=== PATIENT | female | born 2000 | race Hispanic/Latino ===

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

== ENCOUNTER 2018-04-26 23:55 | Emergency (ER) | payer SELFPAY ==
--- NOTE | 2018-04-27 01:08 | ER ---
Nurse's Notes [facility] Name: Damien Erwin Age: 17 yrs Sex: Female : 2000 Arrival Date: 04/26/2018 Time: 23:56 Bed 24 Private MD: Diagnosis: Acute pharyngitis Presentation: 04/27 00:30 Presenting complaint: Patient states: sore throat for 2 days. mg2 00:46 Transition of care: patient was not received from another setting of care. Onset of mg2 symptoms was April 26, 2018. Risk Assessment: Do you want to hurt yourself or someone else? Patient reports no desire to harm self or others. Initial Sepsis Screen: Does the patient meet any 2 criteria? No. Patient's initial sepsis screen is negative. Does the patient have a suspected source of infection? No. Patient's initial sepsis screen is negative. Care prior to arrival: None. 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 - Social history:: Smoking status: Patient/guardian denies using tobacco, never smoked. - Ebola Screening: : No symptoms or risks identified at this time. Screenin:23 Abuse screen: Denies threats or abuse. Nutritional screening: No deficits noted. tl3 Tuberculosis screening: No symptoms or risk factors identified. Fall Risk None identified. Assessment: 00:22 General: Appears in no apparent distress. comfortable, slender, well groomed, well tl3 developed, well nourished, Behavior is calm, cooperative, appropriate for age. Pain: Complains of pain in sore throat. Neuro: Level of Consciousness is awake, alert, obeys commands, Oriented to person, place, time, situation, Appropriate for age. Cardiovascular: Patient's skin is warm and dry. Respiratory: Airway is patent Respiratory effort is even, unlabored, Respiratory pattern is regular, symmetrical. GI: No signs and/or symptoms were reported involving the gastrointestinal system. : No signs and/or symptoms were reported regarding the genitourinary system. EENT: Reports pain in throat. Derm: No signs and/or symptoms reported regarding the dermatologic system. Musculoskeletal: No signs and/or symptoms reported regarding the musculoskeletal system. Vital Signs: 00:23 BP 120 / 69; Pulse 72; Resp 18; Temp 98.5; Pulse Ox 98% on R/A; tl3 01:10 BP 115 / 70; Pulse 78; Resp 18; Pulse Ox 100% on R/A; mg2 ED Course: 04/26 23:56 Patient arrived in ED. ds1 04/27 00:07 Chinedu Frazier PA is PHCP. cp 00:07 Chinedu Oliveros MD is Attending Physician. cp 00:21 Joana Coronel, RN is Primary Nurse. tl3 00:23 Patient has correct armband on for positive identification. Bed in low position. Call tl3 light in reach. Side rails up X 1. Adult w/ patient. 00:23 No provider procedures requiring assistance completed. Patient did not have IV access tl3 during this emergency room visit. 00:46 Triage completed. mg2 01:19 Arm band placed on. mg2 Administered Medications: No medications were administered Outcome: 01:07 Discharge ordered by . cp 01:18 Discharged to home ambulatory, with family. mg2 01:18 Condition: stable 01:18 Discharge instructions given to patient, family, Instructed on discharge instructions, follow up and referral plans. Demonstrated understanding of instructions, follow-up care. 01:20 Patient left the ED. mg2 Signatures: [place] ds1 Chinedu Frazier PA PA Joana Santillan, RN RN tl3 Jeffrey Pradhan RN RN mg2
--- NOTE | 2018-04-27 01:08 | EDPHYS ---
Physician Documentation [facility] Name: Damien Erwin Age: 17 yrs Sex: Female : 2000 Arrival Date: 04/26/2018 Time: 23:56 Bed 24 Private MD: ED Physician Chinedu Oliveros HPI: 04/27 00:13 This 17 yrs old Female presents to ER via Unassigned with complaints of sore cp throat. 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 - Social history:: Smoking status: Patient/guardian denies using tobacco, never smoked. - Ebola Screening: : No symptoms or risks identified at this time. ROS: 00:15 Constitutional: Negative for body aches, chills, fever, poor PO intake. cp 00:15 Eyes: Negative for injury, pain, redness, and discharge. cp 00:15 ENT: Positive for sore throat, Negative for drainage from ear(s), ear pain, difficulty swallowing, difficulty handling secretions. 00:15 Cardiovascular: Negative for chest pain. 00:15 Respiratory: Negative for cough, shortness of breath, wheezing. 00:15 Abdomen/GI: Negative for abdominal pain, nausea, vomiting, and diarrhea. 00:15 Skin: Negative for cellulitis, rash. 00:15 All other systems are negative. Exam: 00:22 Constitutional: The patient appears in no acute distress, alert, awake, non-toxic, well cp developed, well nourished. 00:22 Head/Face: Normocephalic, atraumatic. cp 00:22 Eyes: Periorbital structures: appear normal, Conjunctiva: normal, no exudate, no injection, Sclera: no appreciated abnormality, Lids and lashes: appear normal, bilaterally. 00:22 ENT: External ear(s): are unremarkable, Ear canal(s): are normal, clear, TM's: bulging, is not appreciated, bilaterally, dullness, bilaterally, erythema, is not appreciated, bilaterally, Nose: is normal, Mouth: Lips: moist, Oral mucosa: moist, Gums: normal with healthy appearance, Tongue: is normal, Posterior pharynx: Airway: no evidence of obstruction, patent, Tonsils: are normal in appearance, Uvula: midline, non-edematous, no erythema, swelling, is not appreciated, erythema, that is mild, upper posterior palate, exudate, is not appreciated, Voice: is normal. 00:22 Neck: ROM/movement: is normal, is supple, without pain, no range of motions limitations, no nuchal rigidity, Lymph nodes: no appreciated lymphadenopathy. 00:22 Chest/axilla: Inspection: normal. 00:22 Cardiovascular: Rate: normal, Rhythm: regular. 00:22 Respiratory: the patient does not display signs of respiratory distress, Respirations: normal, no use of accessory muscles, no retractions, no splinting, no tachypnea. 00:22 Skin: cellulitis, is not appreciated, no rash present. Vital Signs: 00:23 BP 120 / 69; Pulse 72; Resp 18; Temp 98.5; Pulse Ox 98% on R/A; tl3 01:10 BP 115 / 70; Pulse 78; Resp 18; Pulse Ox 100% on R/A; mg2 MDM: 00:08 Patient medically screened. [place] 01:06 Data reviewed: vital signs, nurses notes, lab test result(s). cp 01:06 Differential diagnosis: apthous stomatitis, apthous ulcer, obi-levy virus, group A cp strep tonsillitis, samantha's angina, pharyngitis, retropharyngeal abcess. Counseling: I had a detailed discussion with the patient and/or guardian regarding: the historical points, exam findings, and any diagnostic results supporting the discharge/admit diagnosis, to return to the emergency department if symptoms worsen or persist or if there are any questions or concerns that arise at home. 04/27 00:26 Order name: Strep tl3 04/27 00:52 Order name: Throat Culture EDMS Administered Medications: No medications were administered Disposition: 06:44 Co-signature as Attending Physician, Chinedu Oliveros MD I agree with the assessment and [facility] [place] plan of care. Disposition: 04/27/18 01:07 Discharged to Home. Impression: Acute pharyngitis. - Condition is Stable. - Discharge Instructions: Pharyngitis, Sore Throat. - Medication Reconciliation Form, Thank You Letter, Antibiotic Education, Prescription Opioid Use form. - Follow up: Private Physician; When: As needed; Reason: Worsening of condition. - Problem is new. - Symptoms are unchanged. Signatures: Dispatcher [employer] EDChinedu De La Paz MD MD cha Page, Corey, PA PA cp Joana Coronel, RN RN tl3 Jeffrey Pradhan RN RN mg2 Corrections: (The following items were deleted from the chart) 01:20 01:07 04/27/2018 01:07 Discharged to Home. Impression: Acute pharyngitis. Condition is mg2 Stable. Forms are Medication Reconciliation Form, Thank You Letter, Antibiotic Education, Prescription Opioid Use. Follow up: Private Physician; When: As needed; Reason: Worsening of condition. Problem is new. Symptoms are unchanged. cp
[2018-04-27 01:51] VITALS: TEMP 98.5
[2018-04-27 01:52] VITALS: BP 115/70; O2SAT 100
== END 2018-04-27 01:20 | disposition home or self-care (01) ==
LOC: ER 23:55
DX: J02.9 Acute pharyngitis, unspecified (principal)
CPT/HCPCS: 87070; 87081; 99281

== ENCOUNTER 2018-06-12 01:13 | Emergency (ER) | payer SELFPAY ==
--- NOTE | 2018-06-12 02:10 | EDPHYS ---
Physician Documentation [facility] Name: Damien Erwin Age: 18 yrs Sex: Female : 2000 Arrival Date: 06/12/2018 Time: 01:15 Bed 28 Private MD: ED Physician Chinedu Oliveros HPI: 06/12 01:21 This 18 yrs old Female presents to ER via Unassigned with complaints of Sore kb Throat. 01:21 The patient presents with sore throat. The patient describes throat pain as constant. kb Onset: The symptoms/episode began/occurred 2 day(s) ago. Severity of symptoms: At their worst the symptoms were moderate, in the emergency department the symptoms are unchanged. Modifying factors: The symptoms are alleviated by nothing, the symptoms are aggravated by swallowing, Patient's oral intake status: good Denies contact with similarly ill indivduals. Associated signs and symptoms: Pertinent positives: Sore throat. The patient has not experienced similar symptoms in the past, but friend has similar symptoms. The patient has not recently seen a physician. 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 - Social history:: Smoking status: Patient/guardian denies using tobacco. - Ebola Screening: : Patient denies exposure to infectious person Patient denies travel to an Ebola-affected area in the 21 days before illness onset. ROS: 01:21 Constitutional: Negative for fever, chills, and weight loss, Neck: Negative for injury, kb pain, and swelling, Cardiovascular: Negative for chest pain, palpitations, and edema, Respiratory: Negative for shortness of breath, cough, wheezing, and pleuritic chest pain, Abdomen/GI: Negative for abdominal pain, nausea, vomiting, diarrhea, and constipation, Back: Negative for injury and pain, MS/Extremity: Negative for injury and deformity, Skin: Negative for injury, rash, and discoloration, Neuro: Negative for headache, weakness, numbness, tingling, and seizure. 01:21 ENT: Positive for sore throat. Exam: 01:21 Constitutional: This is a well developed, well nourished patient who is awake, alert, kb and in no acute distress. Head/Face: Normocephalic, atraumatic. Chest/axilla: Normal chest wall appearance and motion. Nontender with no deformity. No lesions are appreciated. Cardiovascular: Regular rate and rhythm with a normal S1 and S2. No gallops, murmurs, or rubs. Normal PMI, no JVD. No pulse deficits. Respiratory: Lungs have equal breath sounds bilaterally, clear to auscultation and percussion. No rales, rhonchi or wheezes noted. No increased work of breathing, no retractions or nasal flaring. Abdomen/GI: Soft, non-tender, with normal bowel sounds. No distension or tympany. No guarding or rebound. No evidence of tenderness throughout. Skin: Warm, dry with normal turgor. Normal color with no rashes, no lesions, and no evidence of cellulitis. MS/ Extremity: Pulses equal, no cyanosis. Neurovascular intact. Full, normal range of motion. Neuro: Awake and alert, GCS 15, oriented to person, place, time, and situation. Cranial nerves II-XII grossly intact. Motor strength 5/5 in all extremities. Sensory grossly intact. Cerebellar exam normal. Normal gait. 01:21 ENT: Posterior pharynx: Airway: normal, no evidence of obstruction, Tonsils: are normal in appearance, Uvula: normal, midline, erythema, that is moderate. Vital Signs: 01:28 BP 123 / 74; Pulse 97; Resp 18; Temp 97.9; Pulse Ox 99% on R/A; Weight 72.57 kg; Height aa1 5 ft. 3 in. (160.02 cm); Pain 4/10; 01:28 Body Mass Index 28.34 (72.57 kg, 160.02 cm) aa1 MDM: 01:18 Patient medically screened. kb 01:22 Data reviewed: vital signs, nurses notes. Data interpreted: Pulse oximetry: on room air kb is 100 %. Interpretation: normal. 02:09 Counseling: I had a detailed discussion with the patient and/or guardian regarding: the kb historical points, exam findings, and any diagnostic results supporting the discharge/admit diagnosis, lab results, the need for outpatient follow up, a family practitioner, to return to the emergency department if symptoms worsen or persist or if there are any questions or concerns that arise at home. 06/12 01:21 Order name: Strep; Complete Time: 02:09 kb 06/12 02:10 Order name: Throat Culture EDMS Administered Medications: No medications were administered Disposition: 06/12/18 02:09 Discharged to Home. Impression: Acute pharyngitis. - Condition is Stable. - Discharge Instructions: Pharyngitis, [id number]. - Medication Reconciliation Form, Thank You Letter, Antibiotic Education, Prescription Opioid Use form. - Follow up: Emergency Department; When: As needed; Reason: Worsening of condition. Follow up: Private Physician; When: 2 - 3 days; Reason: Recheck today's complaints, Continuance of care, Re-evaluation by your physician. Addendum: 06/15/2018 06:54 Co-signature as Attending Physician, Chinedu Oliveros MD I agree with the assessment and c nayak plan of care. Signatures: Dispatcher [employer] EDAntonia Butler, SAM-Natanael CARPENTERP-Milka Yanez, RN RN aa1 Chinedu Oliveros MD MD cha Vicente, Ronaldo, RN RN rv Corrections: (The following items were deleted from the chart) 06/12 02:17 02:09 06/12/2018 02:09 Discharged to Home. Impression: Acute pharyngitis. Condition is rv Stable. Forms are Medication Reconciliation Form, Thank You Letter, Antibiotic Education, Prescription Opioid Use. Follow up: Emergency Department; When: As needed; Reason: Worsening of condition. Follow up: Private Physician; When: 2 - 3 days; Reason: Recheck today's complaints, Continuance of care, Re-evaluation by your physician. kb
--- NOTE | 2018-06-12 02:10 | ER ---
Nurse's Notes [facility] Name: Damien Erwin Age: 18 yrs Sex: Female : 2000 Arrival Date: 06/12/2018 Time: 01:15 Bed 28 Private MD: Diagnosis: Acute pharyngitis Presentation: 06/12 01:28 Presenting complaint: Patient states: sore throat x 2 days. Reports she was here with a aa1 friend a few days ago and they were diagnosed with strep throat and she is concerned she may have caught it. Transition of care: patient was not received from another setting of care. Onset of symptoms was June 10, 2018. Risk Assessment: Do you want to hurt yourself or someone else? Patient reports no desire to harm self or others. Initial Sepsis Screen: Does the patient meet any 2 criteria? No. Patient's initial sepsis screen is negative. Does the patient have a suspected source of infection? No. Patient's initial sepsis screen is negative. Care prior to arrival: None. 01:28 Method Of Arrival: Ambulatory aa1 01:28 Acuity: FILOMENA 4 aa1 01:31 Risk Assessment: Do you want to hurt yourself or someone else? Patient reports no rv desire to harm self or others. Triage Assessment: 01:28 General: Appears in no apparent distress. comfortable, Behavior is calm, cooperative, aa1 appropriate for age. 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 - Social history:: Smoking status: Patient/guardian denies using tobacco. - Ebola Screening: : Patient denies exposure to infectious person Patient denies travel to an Ebola-affected area in the 21 days before illness onset. Screenin:31 Abuse screen: Denies threats or abuse. Denies injuries from another. Nutritional rv screening: No deficits noted. Tuberculosis screening: No symptoms or risk factors identified. Fall Risk None identified. Assessment: 01:30 General: Appears in no apparent distress. comfortable, Behavior is calm, cooperative. rv Pain: Complains of pain in throat. Neuro: Level of Consciousness is awake, alert, obeys commands, Oriented to person, place, time, situation. Cardiovascular: Capillary refill < 3 seconds. Respiratory: Airway is patent Respiratory effort is even, Breath sounds are clear bilaterally. GI: No signs and/or symptoms were reported involving the gastrointestinal system. : No signs and/or symptoms were reported regarding the genitourinary system. EENT: Throat has patchy exudate. Derm: Skin is intact. Musculoskeletal: No signs and/or symptoms reported regarding the musculoskeletal system. Vital Signs: 01:28 BP 123 / 74; Pulse 97; Resp 18; Temp 97.9; Pulse Ox 99% on R/A; Weight 72.57 kg; Height aa1 5 ft. 3 in. (160.02 cm); Pain 4/10; 01:28 Body Mass Index 28.34 (72.57 kg, 160.02 cm) aa1 ED Course: 01:15 Patient arrived in ED. am2 01:17 [facility]C [facility] kb 01:17 Chinedu Oliveros MD is Attending Physician. kb 01:31 Arm band placed on right wrist. rv 01:32 Triage completed. aa1 01:32 Patient has correct armband on for positive identification. Bed in low position. Call rv light in reach. Adult w/ patient. Pulse ox on. NIBP on. 02:11 No provider procedures requiring assistance completed. Patient did not have IV access rv during this emergency room visit. Administered Medications: No medications were administered Outcome: 02:09 Discharge ordered by MD. kb 02:11 Discharged to home ambulatory. rv 02:11 Condition: good 02:16 Discharge instructions given to patient, Instructed on discharge instructions, follow rv up and referral plans. Demonstrated understanding of instructions, follow-up care. 02:17 Patient left the ED. rv Signatures: Antonia Braun FNP-C FNP-Ckb Kern, Alissa RN RN aa1 Ellie Mcbride am2 Aamir Mosquera RN RN rv Corrections: (The following items were deleted from the chart) 02:17 02:11 Discharge instructions given to patient, Instructed on discharge instructions, rv follow up and referral plans. medication usage, Demonstrated understanding of instructions, follow-up care, medications, Prescriptions given X 1, rv
[2018-06-12 04:20] VITALS: BP 123/74; TEMP 97.9; O2SAT 99
== END 2018-06-12 02:17 | disposition home or self-care (01) ==
LOC: ER 01:13
DX: J02.9 Acute pharyngitis, unspecified (principal)
CPT/HCPCS: 87070; 87081; 99283

== ENCOUNTER 2018-07-20 06:30 | Emergency (ER) | payer SELFPAY ==
[2018-07-20] MEDS ORDERED: ONDANSETRON 4 MG/2 ML VIAL ONE (07:20)
[2018-07-20] MEDS ORDERED: NA CHLORIDE 0.9% 1,000 ML ONE (07:20)
[2018-07-20 07:33] LABS: Absolute Lymphocytes (CBC) 1.1 K/uL (0.7-4.9); Absolute Monocytes 0.7 K/uL (0.1-1.3); Absolute Neutrophil 3.9 K/uL (1.8-8.0); Basophils % 0.6 % (0-1.3); Eosinophils % 0.1 % (0-4.4); Hematocrit 40.3 % (36.0-45.0); Lymphocytes % 18.8 % (15.3-44.8); MPV 9.4 fL (7.6-11.3); Monocytes % 12.2 % (3.3-12.3); RBC Red Blood Cell Count 4.21 M/uL (3.86-4.86)
[2018-07-20 07:34] LABS: ALT/SGPT 15 U/L (12-78); AST/SGOT 17 U/L (15-37); Albumin 3.7 g/dL (3.4-5.0); Alkaline Phosphatase 76 U/L (45-117); BUN Blood Urea Nitrogen 8 mg/dL (7-18); Bicarbonate 29 mmol/L (21-32); Bilirubin Direct 0.2 mg/dL (0-0.2); Bilirubin Total 0.3 mg/dL (0.2-1.0); Glucose Level 90 mg/dL (74-106); Lipase 52 U/L (73-393); Protein, Total 7.8 g/dL (6.4-8.2); Sodium Level 139 mmol/L (136-145)
[2018-07-20] MEDS ORDERED: CEFTRIAXONE/SWI 1gm 0 GM/0 ML SYR ONE (07:36)
--- NOTE | 2018-07-20 08:14 | ER ---
Nurse's Notes [facility] Name: Damien Erwin Age: 18 yrs Sex: Female : 2000 Arrival Date: 07/20/2018 Time: 06:33 Bed 6 Private MD: Diagnosis: Gastroenteritis Presentation: 07/20 06:42 Presenting complaint: Patient states: "Last night my temperature was 102 and I was jd3 having nausea and vomiting. this morning I am still very nauseous and I blacked out for a second while I was getting ready for work.". Transition of care: patient was not received from another setting of care. Onset of symptoms was July 20, 2018. Risk Assessment: Do you want to hurt yourself or someone else? Patient reports no desire to harm self or others. Initial Sepsis Screen: Does the patient meet any 2 criteria? No. Patient's initial sepsis screen is negative. Does the patient have a suspected source of infection? No. Patient's initial sepsis screen is negative. Care prior to arrival: None. 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 - Social history:: Smoking status: Patient/guardian denies using tobacco. - Ebola Screening: : Patient negative for fever greater than or equal to 101.5 degrees Fahrenheit, and additional compatible Ebola Virus Disease symptoms. Screenin:50 Abuse screen: Denies threats or abuse. Nutritional screening: No deficits noted. jd3 Tuberculosis screening: No symptoms or risk factors identified. Fall Risk Ambulatory Aid- None/Bed Rest/Nurse Assist (0 pts). Gait- Normal/Bed Rest/Wheelchair (0 pts) Mental Status- Oriented to own ability (0 pts). Total Broussard Fall Scale indicates No Risk (0-24 pts). Assessment: 06:49 General: Appears in no apparent distress. uncomfortable, Behavior is calm, cooperative, jd3 appropriate for age. Pain: Denies pain. Neuro: Level of Consciousness is awake, alert, obeys commands, Oriented to person, place, time, situation, Appropriate for age Pupils are PERRLA. Cardiovascular: Capillary refill < 3 seconds Patient's skin is warm and dry. Respiratory: Airway is patent Respiratory effort is even, unlabored, Respiratory pattern is regular, symmetrical. GI: Abdomen is flat, non-distended, Bowel sounds present X 4 quads. Abd is soft and non tender X 4 quads. Reports nausea. : No signs and/or symptoms were reported regarding the genitourinary system. EENT: No signs and/or symptoms were reported regarding the EENT system. Derm: Skin is intact, Skin is dry, Skin is normal, Skin temperature is warm. Musculoskeletal: Circulation, motion, and sensation intact. Range of motion: intact in all extremities. Vital Signs: 06:48 BP 114 / 77; Pulse 79; Resp 16 S; Temp 97.7(O); Pulse Ox 100% on R/A; Weight 68.04 kg j (R); Height 5 ft. 3 in. (160.02 cm) (R); Pain 0/10; 08:11 BP 105 / 58; Pulse 72; Resp 16; Temp 97.7; Pulse Ox 100% on R/A; Pain 0/10; sg 06:48 Body Mass Index 26.57 (68.04 kg, 160.02 cm) j ED Course: 06:33 Patient arrived in ED. am2 06:34 Rivera Calle, RN is Primary Nurse. jd3 06:47 Triage completed. jd3 06:48 Arm band placed on. jd3 06:50 Patient has correct armband on for positive identification. Bed in low position. Call j light in reach. Side rails up X 1. 06:53 Keegan Diaz PA is PHCP. jr8 06:53 David Trevizo MD is Attending Physician. jr8 07:00 Initial lab(s) drawn, by ED staff, sent to lab. Flu and/or RSV swab sent to lab. sg Inserted saline lock: 20 gauge in right antecubital area, using aseptic technique. Blood collected. IV inserted by lead technologist in cytogenetics Johnson. 07:08 Primary Nurse role handed off by Rivera Calle RN sg 07:08 Chase Edouard, RN is Primary Nurse. sg 08:15 No provider procedures requiring assistance completed. IV discontinued, intact, sg bleeding controlled, No redness/swelling at site. Pressure dressing applied. Administered Medications: 07:20 Drug: Zofran 4 mg Route: IVP; Site: right antecubital; sg 08:04 Follow up: Response: No adverse reaction; Nausea is decreased sg 07:25 Drug: NS 0.9% 1000 ml Route: IV; Rate: 1000 ml; Site: right antecubital; sg Outcome: 08:13 Discharge ordered by MD. pruett 08:15 Discharged to home ambulatory, with friend. sg 08:15 Condition: good 08:15 Discharge instructions given to patient, Instructed on discharge instructions, follow up and referral plans. the need for admit, medication usage, safety practices, Demonstrated understanding of instructions, follow-up care, medications, Prescriptions given X 1. 08:24 Patient left the ED. Signatures: Chase Edouard RN RN Georgia Maxwell RN RN Keegan Diaz PA PA jr8 Ellie Mcbride Jonathon RN RN jd3
--- NOTE | 2018-07-20 08:15 | EDPHYS ---
Physician Documentation [facility] Name: Damien Erwin Age: 18 yrs Sex: Female : 2000 Arrival Date: 07/20/2018 Time: 06:33 Bed 6 Private MD: ED Physician David Trevizo HPI: 07/20 07:17 This 18 yrs old Female presents to ER via Ambulatory with complaints of jr8 Vomiting, Fever. 07:17 The patient presents to the emergency department with nausea, vomiting. Onset: The jr8 symptoms/episode began/occurred acutely, yesterday. Possible causes: unknown. The symptoms are aggravated by nothing. The symptoms are alleviated by nothing. Associated signs and symptoms: Pertinent positives: fever. Severity of symptoms: At their worst the symptoms were moderate in the emergency department the symptoms are unchanged. The patient has not experienced similar symptoms in the past. The patient has not recently seen a physician. 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 - Social history:: Smoking status: Patient/guardian denies using tobacco. - Ebola Screening: : Patient negative for fever greater than or equal to 101.5 degrees Fahrenheit, and additional compatible Ebola Virus Disease symptoms. ROS: 07:17 Eyes: Negative for injury, pain, redness, and discharge, ENT: Negative for injury, jr8 pain, and discharge, Neck: Negative for injury, pain, and swelling, Cardiovascular: Negative for chest pain, palpitations, and edema, Respiratory: Negative for shortness of breath, cough, wheezing, and pleuritic chest pain, Back: Negative for injury and pain, MS/Extremity: Negative for injury and deformity, Skin: Negative for injury, rash, and discoloration, Neuro: Negative for headache, weakness, numbness, tingling, and seizure. 07:17 Constitutional: Positive for fever. 07:17 Abdomen/GI: Positive for nausea and vomiting, Negative for abdominal pain, abdominal cramps, abdominal distension, anorexia, dysphagia, hematemesis, black/tarry stool, rectal pain, rectal bleeding, bowel incontinence, flatulence. Exam: 07:17 Eyes: Pupils equal round and reactive to light, extra-ocular motions intact. Lids and jr8 lashes normal. Conjunctiva and sclera are non-icteric and not injected. Cornea within normal limits. Periorbital areas with no swelling, redness, or edema. ENT: Nares patent. No nasal discharge, no septal abnormalities noted. Tympanic membranes are normal and external auditory canals are clear. Oropharynx with no redness, swelling, or masses, exudates, or evidence of obstruction, uvula midline. Mucous membranes moist. Neck: Trachea midline, no thyromegaly or masses palpated, and no cervical lymphadenopathy. Supple, full range of motion without nuchal rigidity, or vertebral point tenderness. No Meningismus. Cardiovascular: Regular rate and rhythm with a normal S1 and S2. No gallops, murmurs, or rubs. Normal PMI, no JVD. No pulse deficits. Respiratory: Lungs have equal breath sounds bilaterally, clear to auscultation and percussion. No rales, rhonchi or wheezes noted. No increased work of breathing, no retractions or nasal flaring. Abdomen/GI: Soft, non-tender, with normal bowel sounds. No distension or tympany. No guarding or rebound. No evidence of tenderness throughout. Back: No spinal tenderness. No costovertebral tenderness. Full range of motion. Skin: Warm, dry with normal turgor. Normal color with no rashes, no lesions, and no evidence of cellulitis. MS/ Extremity: Pulses equal, no cyanosis. Neurovascular intact. Full, normal range of motion. Neuro: Awake and alert, GCS 15, oriented to person, place, time, and situation. Cranial nerves II-XII grossly intact. Motor strength 5/5 in all extremities. Sensory grossly intact. Cerebellar exam normal. Normal gait. Vital Signs: 06:48 BP 114 / 77; Pulse 79; Resp 16 S; Temp 97.7(O); Pulse Ox 100% on R/A; Weight 68.04 kg jd3 (R); Height 5 ft. 3 in. (160.02 cm) (R); Pain 0/10; 08:11 BP 105 / 58; Pulse 72; Resp 16; Temp 97.7; Pulse Ox 100% on R/A; Pain 0/10; sg 06:48 Body Mass Index 26.57 (68.04 kg, 160.02 cm) jd3 MDM: 06:53 Patient medically screened. [facility] 08:13 Data reviewed: vital signs, nurses notes, lab test result(s), and as a result, I will jr8 discharge patient. Data interpreted: Pulse oximetry: on room air is 100 %. Interpretation: normal. Counseling: I had a detailed discussion with the patient and/or guardian regarding: the historical points, exam findings, and any diagnostic results supporting the discharge/admit diagnosis, lab results, the need for outpatient follow up, a family practitioner, to return to the emergency department if symptoms worsen or persist or if there are any questions or concerns that arise at home. Response to treatment: the patient's symptoms have markedly improved after treatment, patient is well hydrated. 07/20 06:55 Order name: Basic Metabolic Panel [facility] 07/20 06:55 Order name: CBC with Diff; Complete Time: 07:37 [facility] 07/20 06:55 Order name: Creatinine for Radiology; Complete Time: 07:37 [facility] 07/20 06:55 Order name: Hepatic Function; Complete Time: 07:37 [facility] 07/20 06:55 Order name: Lipase; Complete Time: 07:37 [facility] 07/20 06:55 Order name: Influenza Screen (a \T\ B); Complete Time: 07:47 [facility] 07/20 06:55 Order name: IV Saline Lock; Complete Time: 07:08 [facility] 07/20 06:55 Order name: Labs collected and sent; Complete Time: 07:08 [facility] 07/20 06:55 Order name: Urine Test (obtain specimen); Complete Time: 07:29 [facility] 07/20 06:55 Order name: Basic Metabolic Panel; Complete Time: 07:37 EDMS 07/20 07:48 Order name: Urine Dipstick--Ancillary (enter results) 07/20 07:48 Order name: Urine --Ancillary (enter results) 07/20 06:55 Order name: Urine Dipstick-Ancillary (obtain specimen); Complete Time: 07:29 Administered Medications: 07:20 Drug: Zofran 4 mg Route: IVP; Site: right antecubital; sg 08:04 Follow up: Response: No adverse reaction; Nausea is decreased sg 07:25 Drug: NS 0.9% 1000 ml Route: IV; Rate: 1000 ml; Site: right antecubital; sg Disposition: 19:02 Co-signature as Attending Physician, David Trevizo MD. pkl Disposition: 07/20/18 08:13 Discharged to Home. Impression: Gastroenteritis. - Condition is Stable. - Discharge Instructions: Viral Gastroenteritis, Adult. - Prescriptions for Zofran 4 mg Oral Tablet - take 1 tablet by ORAL route every 8 hours As needed; 20 tablet. - Work release form, Medication Reconciliation Form, Thank You Letter, Antibiotic Education, Prescription Opioid Use form. - Follow up: Private Physician; When: 2 - 3 days; Reason: Recheck today's complaints, Continuance of care, Re-evaluation by your physician. - Problem is new. - Symptoms have improved. Signatures: Dispatcher [employer] EDChase Small, RN RN David Ramos MD MD pkl Smirch, Shelby, RN RN Keegan Yoon PA PA jr8 Rivera Calle RN RN jd3 Corrections: (The following items were deleted from the chart) 08:24 08:13 07/20/2018 08:13 Discharged to Home. Impression: Gastroenteritis. Condition is ss Stable. Forms are Medication Reconciliation Form, Thank You Letter, Antibiotic Education, Prescription Opioid Use. Follow up: Private Physician; When: 2 - 3 days; Reason: Recheck today's complaints, Continuance of care, Re-evaluation by your physician. Problem is new. Symptoms have improved. jr8
[2018-07-20 08:28] LABS: Urine Blood 1+ (NEG); Urine Glucose NEGATIVE (NEG); Urine Protein 1+ (NEG); Urine Specific Gravity >1.030 (1.005-1.030)
[2018-07-20 08:41] VITALS: TEMP 97.7; O2SAT 100
[2018-07-20 08:42] VITALS: BP 105/58
== END 2018-07-20 08:24 | disposition home or self-care (01) ==
LOC: ER 06:30
DX: K52.9 Noninfective gastroenteritis and colitis, unspecified (principal)
CPT/HCPCS: 36415; 80048; 80076; 81003; 81025; 83690; 85025; 87804; 96374; 99284; J0696; J2405; J7030

== ENCOUNTER 2018-12-23 15:28 | Emergency (ER) | payer SELFPAY ==
[2018-12-23 16:45] LABS: Urine Blood NEGATIVE (NEG); Urine Glucose NEGATIVE (NEG); Urine Protein NEGATIVE (NEG)
[2018-12-23 17:06] LABS: Absolute Lymphocytes (CBC) 2.8 K/uL (0.7-4.9); Absolute Monocytes 0.6 K/uL (0.1-1.3); Absolute Neutrophil 6.1 K/uL (1.8-8.0); Basophils % 0.5 % (0-1.3); Eosinophils % 2.1 % (0-4.4); Hematocrit 37.3 % (36.0-45.0); Lymphocytes % 28.3 % (15.3-44.8); MPV 8.7 fL (7.6-11.3); RBC Red Blood Cell Count 3.82 M/uL (3.86-4.86)
[2018-12-23] MEDS ORDERED: NA CHLORIDE 0.9% 1,000 ML ONE (17:26)
--- NOTE | 2018-12-23 17:35 | EDPHYS ---
Physician Documentation [facility] Name: Damien Erwin Age: 18 yrs Sex: Female : 2000 Arrival Date: 12/23/2018 Time: 15:34 Bed 23 Private MD: BERNABE Physician Chinedu Oliveros HPI: 12/23 17:30 This 18 yrs old Female presents to ER via Ambulatory with complaints of toshia Abdominal Pain, 7 wks . 17:30 The patient presents to the emergency department with abdominal pain, of the left lower toshia quadrant. The estimated gestational age is 7 weeks. course: care: at a clinic. Previous pregnancies: the patient has never been . Associated signs and symptoms: The patient has no apparent associated signs or symptoms. The patient has not experienced similar symptoms in the past. 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 - Social history:: Smoking status: Patient/guardian denies using tobacco. - Ebola Screening: : No symptoms or risks identified at this time. ROS: 17:31 Constitutional: Negative for fever, chills, and weight loss, Eyes: Negative for injury, toshia pain, redness, and discharge, ENT: Negative for injury, pain, and discharge, Neck: Negative for injury, pain, and swelling, Cardiovascular: Negative for chest pain, palpitations, and edema, Respiratory: Negative for shortness of breath, cough, wheezing, and pleuritic chest pain, Back: Negative for injury and pain, : Negative for injury, bleeding, discharge, and swelling, MS/Extremity: Negative for injury and deformity, Skin: Negative for injury, rash, and discoloration, Neuro: Negative for headache, weakness, numbness, tingling, and seizure, Psych: Negative for depression, anxiety, suicide ideation, homicidal ideation, and hallucinations, Allergy/Immunology: Negative for hives, rash, and allergies, Endocrine: Negative for neck swelling, polydipsia, polyuria, polyphagia, and marked weight changes, Hematologic/Lymphatic: Negative for swollen nodes, abnormal bleeding, and unusual bruising. 17:31 Abdomen/GI: Positive for abdominal pain, of the suprapubic area. Exam: 17:31 Constitutional: This is a well developed, well nourished patient who is awake, alert, toshia and in no acute distress. Head/Face: Normocephalic, atraumatic. Eyes: Pupils equal round and reactive to light, extra-ocular motions intact. Lids and lashes normal. Conjunctiva and sclera are non-icteric and not injected. Cornea within normal limits. Periorbital areas with no swelling, redness, or edema. ENT: Nares patent. No nasal discharge, no septal abnormalities noted. Tympanic membranes are normal and external auditory canals are clear. Oropharynx with no redness, swelling, or masses, exudates, or evidence of obstruction, uvula midline. Mucous membranes moist. Neck: Trachea midline, no thyromegaly or masses palpated, and no cervical lymphadenopathy. Supple, full range of motion without nuchal rigidity, or vertebral point tenderness. No Meningismus. Chest/axilla: Normal chest wall appearance and motion. Nontender with no deformity. No lesions are appreciated. Cardiovascular: Regular rate and rhythm with a normal S1 and S2. No gallops, murmurs, or rubs. Normal PMI, no JVD. No pulse deficits. Respiratory: Lungs have equal breath sounds bilaterally, clear to auscultation and percussion. No rales, rhonchi or wheezes noted. No increased work of breathing, no retractions or nasal flaring. Back: No spinal tenderness. No costovertebral tenderness. Full range of motion. Female : Normal external genitalia. Skin: Warm, dry with normal turgor. Normal color with no rashes, no lesions, and no evidence of cellulitis. MS/ Extremity: Pulses equal, no cyanosis. Neurovascular intact. Full, normal range of motion. Neuro: Awake and alert, GCS 15, oriented to person, place, time, and situation. Cranial nerves II-XII grossly intact. Motor strength 5/5 in all extremities. Sensory grossly intact. Cerebellar exam normal. Normal gait. Psych: Awake, alert, with orientation to person, place and time. Behavior, mood, and affect are within normal limits. 17:31 Abdomen/GI: Inspection: abdomen appears normal, Bowel sounds: normal, Palpation: abdomen is soft and non-tender, Liver: no appreciated palpable abnormalities, Hernia: not appreciated. Vital Signs: 16:13 BP 126 / 66; Pulse 75; Resp 16 S; Temp 98.8(TE); Pulse Ox 100% on R/A; Weight 70.31 kg aa5 (R); Height 5 ft. 3 in. (160.02 cm) (R); Pain 5/10; 17:15 BP 106 / 67; Pulse 82; Resp 14; Pulse Ox 99% on R/A; Pain 0/10; ls4 18:10 BP 112 / 74; Pulse 78; Resp 14; Pulse Ox 99% on R/A; Pain 0/10; ls4 16:13 Body Mass Index 27.46 (70.31 kg, 160.02 cm) aa5 MDM: 16:22 Patient medically screened. [facility] 17:31 Data reviewed: vital signs, nurses notes, lab test result(s), radiologic studies, [facility] ultrasound. 12/23 16:30 Order name: Quantitative Hcg; Complete Time: 18:22 [facility] 12/23 16:30 Order name: Abo/rh Typing; Complete Time: 17:34 [facility] 12/23 16:30 Order name: Basic Metabolic Panel; Complete Time: 18:22 [facility] 12/23 16:30 Order name: CBC with Diff; Complete Time: 17:26 [facility] 12/23 16:30 Order name: Urine Culture [facility] 12/23 16:41 Order name: Urine Dipstick--Ancillary (enter results); Complete Time: 17:26 12/23 16:30 Order name: Urine Test (obtain specimen); Complete Time: 16:56 [facility] 12/23 16:30 Order name: IV Saline Lock; Complete Time: 16:57 [facility] 12/23 16:30 Order name: Labs collected and sent; Complete Time: 16:56 [facility] 12/23 16:30 Order name: NPO; Complete Time: 16:56 [facility] 12/23 16:30 Order name: Urine Dipstick-Ancillary (obtain specimen); Complete Time: 16:56 [facility] 12/23 16:30 Order name: US Transvaginal Ob [facility] 12/23 16:41 Order name: Urine --Ancillary (enter results); Complete Time: 17:26 bd 12/23 18:22 Order name: PO challenge: juice; Complete Time: 18:25 [facility] Administered Medications: 17:10 Drug: NS 0.9% 1000 ml Route: IV; Rate: 1 bolus; Site: right antecubital; ls4 18:10 Follow up: IV Status: Completed infusion; IV Intake: 1000ml ls4 Disposition: 12/23/18 17:34 Discharged to Home. Impression: Abdominal tenderness, related conditions, unspecified, first trimester. - Condition is Stable. - Discharge Instructions: First Trimester of , [id number], First Trimester of , Pelvic Rest. - Prescriptions for Vitamin 27- 0.8 mg Oral Tablet - take 1 tablet by ORAL route once daily; 30 tablet. - Medication Reconciliation Form, Thank You Letter, Antibiotic Education, Prescription Opioid Use, Work release form form. - Follow up: Private Physician; When: 2 - 3 days; Reason: Recheck today's complaints, Continuance of care, Re-evaluation by your physician. Follow up: Que Gibbons; When: 2 - 3 days; Reason: Recheck today's complaints, Continuance of care, Re-evaluation by your physician. - Problem is new. - Symptoms have improved. Signatures: Dispatcher [employer] EDMS Chinedu Oliveros MD MD cha Calderon, Audri, RN RN aa5 Ariadne Lucas RN RN ls4 Corrections: (The following items were deleted from the chart) 18:29 17:34 12/23/2018 17:34 Discharged to Home. Impression: Abdominal tenderness; ls4 related conditions, unspecified, first trimester. Condition is Stable. Discharge Instructions: First Trimester of , [id number], First Trimester of , Pelvic Rest. Prescriptions for Vitamin 27-0.8 mg Oral Tablet - take 1 tablet by ORAL route once daily; 30 tablet. and Forms are Medication Reconciliation Form, Thank You Letter, Antibiotic Education, Prescription Opioid Use. Follow up: Private Physician; When: 2 - 3 days; Reason: Recheck today's complaints, Continuance of care, Re-evaluation by your physician. Follow up: Que Gibbons; When: 2 - 3 days; Reason: Recheck today's complaints, Continuance of care, Re-evaluation by your physician. Problem is new. Symptoms have improved. toshia
--- NOTE | 2018-12-23 17:35 | ER ---
Nurse's Notes [facility] Name: Damien Erwin Age: 18 yrs Sex: Female : 2000 Arrival Date: 12/23/2018 Time: 15:34 Bed 23 Private MD: Diagnosis: Abdominal tenderness; related conditions, unspecified, first trimester Presentation: 12/23 16:09 Presenting complaint: Patient states: LLQ pain that began and chest pain that began aa5 today. Pt denies vaginal bleeding. Pt reports being 7 weeks . 16:09 Transition of care: patient was not received from another setting of care. Onset of aa5 symptoms was December 23, 2018. Risk Assessment: Do you want to hurt yourself or someone else? Patient reports no desire to harm self or others. Initial Sepsis Screen: Does the patient meet any 2 criteria? No. Patient's initial sepsis screen is negative. Does the patient have a suspected source of infection? No. Patient's initial sepsis screen is negative. Care prior to arrival: None. 16:09 Acuity: FILOMENA 3 aa5 16:09 Method Of Arrival: Ambulatory aa5 Triage Assessment: 16:28 General: Appears in no apparent distress. Behavior is calm, cooperative, flat. Pain: ls4 Complains of pain in left lower quadrant Pain currently is 5 out of 10 on a pain scale. Neuro: No deficits noted. Cardiovascular: No deficits noted. Respiratory: No deficits noted. GI: Abdomen is non-distended, Bowel sounds present X 4 quads. Abd is soft and non tender. Derm: Skin is intact, Skin is dry, Skin is pink, warm \T\ dry. 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 - Social history:: Smoking status: Patient/guardian denies using tobacco. - Ebola Screening: : No symptoms or risks identified at this time. Screenin:10 Abuse screen: Denies threats or abuse. Denies injuries from another. Nutritional ls4 screening: No deficits noted. Tuberculosis screening: No symptoms or risk factors identified. Fall Risk None identified. Assessment: 16:10 General: Appears in no apparent distress. comfortable, Behavior is calm, cooperative. ls4 Neuro: No deficits noted. Respiratory: Airway is patent Respiratory effort is even, unlabored, Respiratory pattern is regular, Breath sounds are clear bilaterally. : Reports vaginal bleeding that is bright red, spotty. 17:10 Reassessment: Patient appears in no apparent distress at this time. Patient and/or ls4 family updated on plan of care and expected duration. Pain level reassessed. Patient is alert, oriented x 3, equal unlabored respirations, skin warm/dry/pink. 18:10 Reassessment: Patient appears in no apparent distress at this time. Patient and/or ls4 family updated on plan of care and expected duration. Pain level reassessed. Patient is alert, oriented x 3, equal unlabored respirations, skin warm/dry/pink. Vital Signs: 16:13 BP 126 / 66; Pulse 75; Resp 16 S; Temp 98.8(TE); Pulse Ox 100% on R/A; Weight 70.31 kg aa5 (R); Height 5 ft. 3 in. (160.02 cm) (R); Pain 5/10; 17:15 BP 106 / 67; Pulse 82; Resp 14; Pulse Ox 99% on R/A; Pain 0/10; ls4 18:10 BP 112 / 74; Pulse 78; Resp 14; Pulse Ox 99% on R/A; Pain 0/10; ls4 16:13 Body Mass Index 27.46 (70.31 kg, 160.02 cm) aa5 ED Course: 15:34 Patient arrived in ED. ls4 16:10 Ariadne Lucas, RN is Primary Nurse. ls4 16:10 No provider procedures requiring assistance completed. ls4 16:10 by wv, sent to lab. Urine collected: clean catch specimen, clear. IV discontinued, ls4 intact, bleeding controlled, No redness/swelling at site. Pressure dressing applied. 16:10 Patient has correct armband on for positive identification. Bed in low position. Call ls4 light in reach. Side rails up X 1. Pulse ox on. NIBP on. Diet: Patient is NPO. 16:10 Arm band placed on Patient placed in an exam room, on a stretcher. aa5 16:12 Triage completed. aa5 16:22 Chinedu Oliveros MD is Attending Physician. toshia 16:41 Urine --Ancillary (enter results) Sent. ls4 16:42 Urine Dipstick--Ancillary (enter results) Sent. ls4 17:15 US Transvaginal Ob In Process Unspecified. EDMT 17:34 Que Gibbons MD is Referral Physician. toshia Administered Medications: 17:10 Drug: NS 0.9% 1000 ml Route: IV; Rate: 1 bolus; Site: right antecubital; ls4 18:10 Follow up: IV Status: Completed infusion; IV Intake: 1000ml ls4 Intake: 18:10 IV: 1000ml; Total: 1000ml. ls4 Outcome: 17:34 Discharge ordered by . toshia 18:21 Discharged to home ambulatory, with significant other. ls4 18:21 Condition: stable 18:21 Discharge instructions given to patient, Instructed on discharge instructions, follow up and referral plans. medication usage, safety practices, Demonstrated understanding of instructions, follow-up care, medications, Prescriptions given X 1. 18:29 Patient left the ED. ls4 Signatures: Dispatcher [employer] Chinedu Ulrich MD MD cha Calderon, Audri, RN RN Ariadne Chase RN RN ls4
[2018-12-23 17:50] LABS: BUN Blood Urea Nitrogen 6 mg/dL (7-18); Bicarbonate 27 mmol/L (21-32); Glucose Level 69 mg/dL (74-106); HCG, Quantitative 49469 mIU/mL (1-3); Potassium 4.1 mmol/L (3.5-5.1); Sodium Level 138 mmol/L (136-145)
[2018-12-23 18:46] VITALS: TEMP 98.8
[2018-12-23 18:47] VITALS: O2SAT 99
[2018-12-23 18:49] VITALS: BP 112/74
--- NOTE | 2018-12-25 12:00 | RAD REPORT ---
EXAM DESCRIPTION: US - Transvaginal OB - 12/24/2018 11:36 am CLINICAL HISTORY: with abdominal pain COMPARISON: None. FINDINGS: The uterus 7 x 5 x 4 centimeters. A gestational sac is present within the endometrium. Wi thin this is a pole with a crown-rump length 1.4 centimeters. Cardiac activity 154 beats per mi nute. A yolk sac is seen. Ovaries are normal in size and echotexture. Right and left adnexa unremarkable. 3.4 centimeter left ovarian cyst Small amount of fluid IMPRESSION: Single live intrauterine with an estimated gestational 7 weeks 4 days MARCO 07/28 3.4 centimeter left ovarian cyst. Followup ultrasound in a couple months would be helpful for re-eval uation
== END 2018-12-23 18:29 | disposition home or self-care (01) ==
LOC: ER 15:28
DX: O26.891 Other specified pregnancy related conditions, first trimester (principal); R10.32 Left lower quadrant pain; Z3A.01 Less than 8 weeks gestation of pregnancy
CPT/HCPCS: 36415; 76817; 80048; 81003; 81025; 84702; 85025; 86900; 86901; 87086; 87088; 96360; 99284; J7030

== ENCOUNTER 2022-06-15 17:01 | Emergency (ER) | payer OTHER ==
--- OUTSIDE RECORDS SUMMARY | 2022-06-15 17:06 | XMS REPORT | Continuity of Care Document ---
:2000 Author Organization [facility] t Address [address] [place] [address] Dr. Stern. [address] [place] [address] Care Team Providers Name Role Phone Anita Mclaughlin MD Primary Care Physician Odilon Aviles NP Attending Clinician ODILON AVILES Attending Clinician Unavailable ARIADNE JENKINS Attending Clinician Unavailable Ariadne Jenkins DO Attending Clinician TAHIR KRUSE Attending Clinician Unavailable SHAWN ROBISON Attending Clinician Unavailable SALAS CALIX Attending Clinician Unavailable FIDEL JIN Attending Clinician Unavailable KATE SUAREZ Attending Clinician Unavailable ODILON AVILES Admitting Clinician Unavailable FIDEL JIN Admitting Clinician Unavailable KATE SUAREZ Admitting Clinician Unavailable Payers Payer Name Policy Type Policy Number Effective Date Expiration Date S ource Problems Condition Condition Condition Status Onset Resolution Last Treating Co mments Source Name Details Category Date Date Treatment Clinician Date Irregular Irregular Disease Active Uni vers menstrual menstrual 8-23 ity of cycle cycle 00:00: [address] Pain Pain Disease Active Univers pelvic pelvic 8- ity of 00:00: [address] BMI BMI Disease Active Univers 33.0-33.9, 33.0-33.9, 8-23 it y of adult adult 00:00: [place] 00 [facility] Liveborn Liveborn Disease Active 2020-0 Unive rs , of , of 1-04 it y of [place] born in born in [facility] hospital by vaginal by vaginal delivery delivery Pre-eclamp Pre-eclamp Disease Active 2020-0 U nivers patience, mild, patience, mild, 1-04 it y of [place] [facility] Chorioamni Chorioamni Disease Active 2020-0 U nivers onitis in onitis in 104 ity of third third 00:00: [place] trimester trimester 00 [facility] Oral Oral Disease Active 2020-0 Univers contracept contracept 1 it y of ion ion 00:00: [place] initiation initiation 00 Me dical Branch 39 weeks 39 weeks Disease Active 2020-0 Unive rs gestation gestation 1 ity of of of 00:00: [place] 00 [facility] Diet Diet Disease Active 2020-0 Univers controlled controlled 1-02 it y of gestationa gestationa [place] l diabetes 00 Me dical mellitus mellitus [place] (GDM), (GDM), antepartum antepartum Group B Group B Disease Active 2020-0 Univers streptococ streptococ 1-02 it y of [facility] 00:00: [place] infection infection 00 [facility] during during Branch Obesity Obesity Disease Active 2018-07 Univers (BMI (BMI 1-15 ity of 30-39.9) 30-39.9) 00:00: [place] 00 [facility] Hematuria Hematuria Disease Active 2018-07 Overview: Univers 0-12 Formattin ity of 00:00: g of this [place] 00 note Medical might be Branch different from the original. 05/04/19 - seen by Urology, Recommend ing a stent. Hydronephr Hydronephr Disease Active 2019 Overview : Univers osis of osis of 0-12 Formattin ity o f right right 00:00: g of this [place] kidney kidney 00 note Medical might be Branch different from the original. 05/04/19 - seen by Urology, Recommend ing a stent. Short Short Disease Active 2019- Overview: Univer s cervix cervix 8-30 Formattin ity of affecting affecting 00:00: [place] of this [place] 00 note [facility] might be Branch different from the original. 03/12/19 - CL is 29.5 mm03/26/19 - CL is 28 mm/ - CL is 30 mm BV BV Disease Active Overview: Univer s (bacterial (bacterial 12-23 Formattin ity of vaginosis) vaginosis) 00:00: g of this [place] [id number] note Medical might be Branch different from the original. 12/23/18 - first trimester . No treatment . Renal Renal Disease Active [facility] 11[facility]02 [facility] Allergies, Adverse Reactions, Alerts This patient has no known allergies or adverse reactions. Social History Social Habit Start Date Stop Date Quantity Comments Source Alcohol intake 2022-04-09 2022-04-09 Current University 00:00:00 00:00:00 non-drinker of [facility] alcohol (finding) Branch Exposure to 2022-03-09 2022-03-19 Not sure [facility]-CoV-2 00:00:00 09:54:00 [facility] (event) Branch Tobacco use and 2022-03-19 2022-03-19 Smokeless tobacco Un iversity of exposure 00:00:00 00:00:00 non-user [facility] Sex Assigned At [birth year] KIERRA Keita kes 00:00:00 00:00:00 Medical Center Smoking Status Start Date Stop Date Source Never smoked tobacco [facility] Medications Ordered Filled Start Stop Current Ordering Indication Dosage Frequency Signature Comments Components Source Medication Medication Date Date Medication? Clinician (SIG) Name Name norethindro Yes [id number] 1{tbl} Take 1 Univers ne-ethinyl 9-13 tablet by ity of estradiol 00:00: [facility] ([facility] 00 [facility] 08/16, ,) morning. Branc h 1-20 mg-mcg per tablet norethindro 2021- No [id number] .35mg Take 1 Univers ne 0.35 mg 204-09 tablet by ity of tablet 00:00: 00:00 mouth [place] 00 :00 daily. Medical Branch docusate Yes [id number] 240mg Take 1 U nivers calcium 240 1-04 capsule by it y of mg capsule 00:00: mouth once [place] 00 daily as Medical needed for Branch Constipati on. ferrous 2020-0 Yes [id number] 325mg Take 1 Un jb sulfate 325 1-04 tablet by ity of mg (65 mg 00:00: mouth 2 [place] iron) 00 (two) Medical tablet times Branch daily. ibuprofen 2020-0 Yes [id number] 600mg Take 1 Univers 600 mg 1-04 tablet by ity of tablet 00:00: mouth [place] 00 every 6 Medical (six) Branch hours as needed (Pain). Take with food or milk. [id number] 2018-07 Yes 1{each} Take 1 U nivers 3-dha-epa-f 1-25 Each by ity o f [place] oil 00:00: mouth [place] ( 00 daily. Medical GUMMY) 400 Branch mcg-35 mg -25 mg-5 mg Chew medroxyPROG Yes 150mg Inject [address] ESTERone 4-15 mg [facility] (DEPO-PROVE 09:45: intramuscu Medical RA) 150 13 larly Center mg/mL every 3 injection (three) months. tamsulosin Yes .4mg QD Take 1 [facility] (FLOMAX) 4-10 capsule [facility] 0.4 mg Cp24 00:00: (0.4 mg Med ical 24 hr 00 total) by Center capsule mouth daily. Immunizations Ordered Filled Immunization Date Status Comments [facility] Branch e Immunization Name Name SARS-COV-2 COVID-19 2021-02-27 Completed Unive rsity of PFIZER VACCINE 00:00:00 [facility] SARS-COV-2 COVID-19 2021-01-31 Completed Unive rsity of PFIZER VACCINE 00:00:00 [facility] Influenza Virus 2019-05-14 Completed Universit y of Vaccine Quad .5 mL 00:00:00 [facility] 6+ MO [place] TDAP (ADACEL) 2019-05-14 Completed University of VACCINE 00:00:00 [facility] DTAP 2002-10-19 Completed University of 00:00:00 [facility] MMR 2002-10-19 Completed University 00:00:00 [facility] Polio (IPV/OPV) 2002-10-19 Completed Universit y of 00:00:00 [place] [facility] Hep B, Adol or Pedi 1998 Completed Unive rsity of Dosage 00:00:00 [facility] Vital Signs Vital Name Observation Time Observation Value Comments Source Systolic blood 2022-04-09 14:16:00 117 mm[Hg] Univer sity of pressure [facility] Diastolic blood 2022-04-09 14:16:00 75 mm[Hg] Unive rsity of pressure [facility] Heart rate 2022-04-09 14:16:00 70 /min [facility] Respiratory rate 2022-04-09 14:16:00 18 /min Univ ersity [facility] Body height 2022-04-09 14:16:00 160 cm [facility] Body weight 2022-04-09 14:16:00 86.818 kg [facility] BMI 2022-04-09 14:16:00 33.90 kg/m2 [facility] Oxygen saturation in 2022-04-09 14:16:00 98 /min [facility] Arterial blood by [facility] Pulse oximetry Branch Procedures This patient has no known procedures. Encounters Start End Encounter Admission Attending Care Care Encounter Source Date/Time Date/Time Type Type Clinicians Facility Department ID 2022-04-09 2022-04-09 Office Rosalind [facility] [id number] [facility] 09:30:00 09:30:00 Visit Odilon MORROW [id number] it y of WOMEN'S 4.2.7.2.686 [facility] [id number] [address] 2022-04-09 2022-04-09 Outpatient R ODILON AVILES [facility] B [id number] [facility] 09:30:00 09:29:23 ODILON AVILES [facility] 2022-04-05 2022-04-05 Telephone Rosalind [facility] [id number] Univers 00:00:00 00:00:00 Odilon MROROW [id number] it y of PEDIATRIC 4.2.7.2.686 [facility] [id number] [place] [address] Branch 2022-04-02 2022-04-02 Outpatient R TRIODILON CARTY [facility] B [id number] Univers 16:08:40 23:59:00 ZAKIYAODILON CARTY [facility] 2022-04-02 2022-04-02 [facility] [id number] Univers 16:08:40 23:59:00 Encounter Odilon MOTT [id number] ity of [place] 4.2.7.2.686 [facility] [id number] [facility] 806 [place] 2022-03-27 2022-03-27 Outpatient R ODILON AVILES [facility] B [id number] Univers 00:00:00 00:00:00 ZAKIYAODILON CARTY [facility] 2022-03-19 2022-03-19 Outpatient R ODILON AVILES [facility] B [id number] Univers 08:30:00 08:51:29 JOANIEODILON STONER [facility] 2022-03-19 2022-03-19 [facility] [id number] Univers 08:30:00 08:51:29 Visit Odilon MORROW [id number] it y of [place] INFIRMAR[place] 4.2.7.2.686 [facility] [id number] [facility] 134 Branch 2022-03-19 2022-03-19 Outpatient R EVODILON GUZMAN [facility] B [id number] Univers 08:30:00 08:30:00 JOANIEODILON STONER [facility] 2022-03-17 2022-03-17 Emergency [facility] [id number] Univers 19:54:00 20:33:00 ARIADNE zhao [facility] 2022-03-17 2022-03-17 [place] [id number] Univers 19:54:00 20:33:00 Ariadne MOTT [id number] ity of [place] 4.2.7.2.686 [facility] [id number] [facility] 084 Branch 2022-03-172022-03-17 Outpatient R AIXA [facility] [id number] Univers 19:40:00 19:40:00 TAHIR [facility] 2021-02-27 2021-02-27 Outpatient R ENRIQUETA [facility] [id number] Univers 10:10:00 [facility]10[facility] 2021-01-31 Outpatient R ENRIQUETA [facility] [id number] Univers 13:20:00 13:20:[facility] 2021-01-31 2021-01-31 Outpatient R [facility] [id number] Univers 13:10:00 13:10:00 [facility] 2020-04-05 2020-04-05 Outpatient R YOGI [facility] [id number] Univers 15:30:00 15:30:00 SALAS [facility] 2019-07-17 2019-07-17 Outpatient P ANNABELROSEYEN [facility] ANNALEE [id number] Univers 18:47:00 20:30:00 [facility] Results Test Description Test Time Test Comments Results Result Comments Source AFB CULTURE + SMEAR 2016-12-17 15:03:00 Test Item Value Reference Range Interpretation Comme nts CULTURE (BEAKER) (test code = 1095) No acid-fast bacilli isolated i n 42 days AFB SMEAR (BEAKER) (test code = 994) No acid fast bacilli seen FUNGUS CULTURE + [id number] 09:04:00 Test Item Value Reference Range Interpretation Comments CULTURE (BEAKER) (test No fungus isolated in code = 1095) 28 days FUNGUS SMEAR (BEAKER) No fungi seen (test code = 1406) TISSUE [id number] 17:22:00 Test Item Value Reference Range Interpretation Comments LAB AP CPT CODE (BEAKER) (test code = 41469 2749) ANAEROBIC [id number] 04:22:00 Test Item Value Reference Range Interpretation Comments CULTURE (BEAKER) (test No anaerobes isolated code = 1095) SPIN/CONCENTRATION [id number] 14:41:00 Test Item Value Reference Range Interpretation Comments CONCENTRATION CHARGED (BEAKER) (test Done code = 2657) URINE [id number] 12:29:00 Test Item Value Reference Range Interpretation Comments CULTURE (BEAKER) (test code = 1095) No growth BASIC METABOLIC [id number] 04:54:00 Test Item Value Reference Range Interpretation Comments SODIUM (BEAKER) 137 meq/L 136-145 (test code = 381) POTASSIUM (BEAKER) 4.1 meq/L 3.5-5.1 (test code = 379) CHLORIDE (BEAKER) 109 meq/L 98-107 H (test code = 382) CO2 (BEAKER) (test 22 meq/L 22-29 code = 355) BLOOD UREA NITROGEN 5 mg/dL 7-21 L (BEAKER) (test code = 354) CREATININE (BEAKER) 0.63 mg/dL 0.57-1.25 (test code = 358) GLUCOSE RANDOM 86 mg/dL 70-105 (BEAKER) (test code = 652) CALCIUM (BEAKER) 8.7 mg/dL 8.4-10.2 (test code = 697) EGFR (BEAKER) (test mL/min/1.73 INSUFFIC IENT CLINICAL code = 1092) sq m DATA TO CALCULA TE ESTIMATED GFR. CBC W/PLT COUNT & AUTO [id number] 04:33:00 Test Item Value Reference Range Interpretation Comments WHITE BLOOD CELL COUNT (BEAKER) 11.1 K/ L 4.0-10.0 H (test code = 775) RED BLOOD CELL COUNT (BEAKER) 3.28 M/ L 4.00-5.00 L (test code = 761) HEMOGLOBIN (BEAKER) (test code = 11.4 GM/DL 12.0-15.0 L 410) HEMATOCRIT (BEAKER) (test code = 33.2 % 36.0-45.0 L 411) MEAN CORPUSCULAR VOLUME (BEAKER) 101.0 fL 82.0-99.0 H (test code = 753) MEAN CORPUSCULAR HEMOGLOBIN 34.9 pg 27.0-33.0 H (BEAKER) (test code = 751) MEAN CORPUSCULAR HEMOGLOBIN CONC 34.4 GM/DL 32.0-36.0 (BEAKER) (test code = 752) RED CELL DISTRIBUTION WIDTH 11.8 % 10.3-14.2 (BEAKER) (test code = 412) PLATELET COUNT (BEAKER) (test 209 K/CU MM 150-430 code = 756) MEAN PLATELET VOLUME (BEAKER) 7.7 fL 6.5-10.5 (test code = 754) NUCLEATED RED BLOOD CELLS 0 /100 WBC 0-0 (BEAKER) (test code = 413) NEUTROPHILS RELATIVE PERCENT 58 % (BEAKER) (test code = 429) LYMPHOCYTES RELATIVE PERCENT 34 % (BEAKER) (test code = 430) MONOCYTES RELATIVE PERCENT 7 % (BEAKER) (test code = 431) EOSINOPHILS RELATIVE PERCENT 1 % (BEAKER) (test code = 432) BASOPHILS RELATIVE PERCENT 1 % (BEAKER) (test code = 437) NEUTROPHILS ABSOLUTE COUNT 6.44 K/ L 1.80-8.00 (BEAKER) (test code = 670) LYMPHOCYTES ABSOLUTE COUNT 3.74 K/ L 1.48-4.50 (BEAKER) (test code = 414) MONOCYTES ABSOLUTE COUNT (BEAKER) 0.76 K/ L 0.00-1.30 (test code = 415) EOSINOPHILS ABSOLUTE COUNT 0.10 K/ L 0.00-0.50 (BEAKER) (test code = 416) BASOPHILS ABSOLUTE COUNT (BEAKER) 0.06 K/ L 0.00-0.20 (test code = 417) 0.00URINE [id number] 13:31:00 Test Item Value Reference Range Interpretation Comments CULTURE (BEAKER) (test code = 1095) No growth BASIC METABOLIC [id number] 05:25:00 Test Item Value Reference Range Interpretation Comments SODIUM (BEAKER) 137 meq/L 136-145 (test code = 381) POTASSIUM (BEAKER) 4.3 meq/L 3.5-5.1 (test code = 379) CHLORIDE (BEAKER) 110 meq/L 98-107 H (test code = 382) CO2 (BEAKER) (test 20 meq/L 22-29 L code = 355) BLOOD UREA NITROGEN 8 mg/dL 7-21 (BEAKER) (test code = 354) CREATININE (BEAKER) 0.69 mg/dL 0.57-1.25 (test code = 358) GLUCOSE RANDOM 127 mg/dL 70-105 H (BEAKER) (test code = 652) CALCIUM (BEAKER) 8.6 mg/dL 8.4-10.2 (test code = 697) EGFR (BEAKER) (test mL/min/1.73 INSUFFIC IENT CLINICAL code = 1092) sq m DATA TO CALCULA TE ESTIMATED GFR. CBC W/PLT COUNT & AUTO [id number] 05:20:00 Test Item Value Reference Range Interpretation Comments WHITE BLOOD CELL COUNT (BEAKER) 16.3 K/ L 4.0-10.0 H (test code = 775) RED BLOOD CELL COUNT (BEAKER) 3.34 M/ L 4.00-5.00 L (test code = 761) HEMOGLOBIN (BEAKER) (test code = 11.1 GM/DL 12.0-15.0 L 410) HEMATOCRIT (BEAKER) (test code = 33.6 % 36.0-45.0 L 411) MEAN CORPUSCULAR VOLUME (BEAKER) 101.0 fL 82.0-99.0 H (test code = 753) MEAN CORPUSCULAR HEMOGLOBIN 33.4 pg 27.0-33.0 H (BEAKER) (test code = 751) MEAN CORPUSCULAR HEMOGLOBIN CONC 33.2 GM/DL 32.0-36.0 (BEAKER) (test code = 752) RED CELL DISTRIBUTION WIDTH 11.8 % 10.3-14.2 (BEAKER) (test code = 412) PLATELET COUNT (BEAKER) (test 207 K/CU MM 150-430 code = 756) MEAN PLATELET VOLUME (BEAKER) 8.1 fL 6.5-10.5 (test code = 754) NUCLEATED RED BLOOD CELLS 0 /100 WBC 0-0 (BEAKER) (test code = 413) NEUTROPHILS RELATIVE PERCENT 85 % (BEAKER) (test code = 429) LYMPHOCYTES RELATIVE PERCENT 8 % (BEAKER) (test code = 430) MONOCYTES RELATIVE PERCENT 7 % (BEAKER) (test code = 431) EOSINOPHILS RELATIVE PERCENT 0 % (BEAKER) (test code = 432) BASOPHILS RELATIVE PERCENT 0 % (BEAKER) (test code = 437) NEUTROPHILS ABSOLUTE COUNT 13.90 K/ L 1.80-8.00 H (BEAKER) (test code = 670) LYMPHOCYTES ABSOLUTE COUNT 1.25 K/ L 1.48-4.50 L (BEAKER) (test code = 414) MONOCYTES ABSOLUTE COUNT (BEAKER) 1.18 K/ L 0.00-1.30 (test code = 415) EOSINOPHILS ABSOLUTE COUNT 0.01 K/ L 0.00-0.50 (BEAKER) (test code = 416) BASOPHILS ABSOLUTE COUNT (BEAKER) 0.02 K/ L 0.00-0.20 (test code = 417) 0.00URINALYSIS W/ [id number] 06:18:00 Test Item Value Reference Range Interpretation Comments COLOR (BEAKER) (test code = Yellow 470) CLARITY (BEAKER) (test code = Hazy 469) SPECIFIC GRAVITY UA (BEAKER) 1.017 1.001-1.035 (test code = 468) PH UA (BEAKER) (test code = 6.0 5.0-8.0 467) PROTEIN UA (BEAKER) (test code Negative Negative = 464) GLUCOSE UA (BEAKER) (test code Negative Negative = 365) KETONES UA (BEAKER) (test code 20 mg/dL Negative A = 371) BILIRUBIN UA (BEAKER) (test Negative Negative code = 462) BLOOD UA (BEAKER) (test code = Small Negative A 461) NITRITE UA (BEAKER) (test code Negative Negative = 465) LEUKOCYTE ESTERASE UA (BEAKER) Large Negative A (test code = 466) UROBILINOGEN UA (BEAKER) (test 0.2 mg/dL 0.2-1.0 code = 463) RBC UA (BEAKER) (test code = 11 /HPF 519) WBC UA (BEAKER) (test code = 28 /HPF 520) BACTERIA (BEAKER) (test code = Occasional 517) MUCUS (BEAKER) (test code = Rare 1574) SQUAMOUS EPITHELIAL (BEAKER) 2 /HPF (test code = 516) SOURCE(BEAKER) (test code = Urine, Voided 6420) BASIC METABOLIC [id number] 06:17:00 Test Item Value Reference Range Interpretation Comments SODIUM (BEAKER) 137 meq/L 136-145 (test code = 381) POTASSIUM (BEAKER) 4.3 meq/L 3.5-5.1 (test code = 379) CHLORIDE (BEAKER) 112 meq/L 98-107 H (test code = 382) CO2 (BEAKER) (test 17 meq/L 22-29 L code = 355) BLOOD UREA NITROGEN 11 mg/dL 7-21 (BEAKER) (test code = 354) CREATININE (BEAKER) 0.85 mg/dL 0.57-1.25 (test code = 358) GLUCOSE RANDOM 109 mg/dL 70-105 H (BEAKER) (test code = 652) CALCIUM (BEAKER) 8.5 mg/dL 8.4-10.2 (test code = 697) EGFR (BEAKER) (test mL/min/1.73 INSUFFIC IENT CLINICAL code = 1092) sq m DATA TO CALCULA TE ESTIMATED GFR. SCREEN, [id number] 06:08:00 Test Item Value Reference Range Interpretation Comments TEST URINE (BEAKER) (test Negative code = 583) CBC W/PLT COUNT & AUTO [id number] 06:04:00 Test Item Value Reference Range Interpretation Comments WHITE BLOOD CELL COUNT (BEAKER) 15.0 K/ L 4.0-10.0 H (test code = 775) RED BLOOD CELL COUNT (BEAKER) 3.62 M/ L 4.00-5.00 L (test code = 761) HEMOGLOBIN (BEAKER) (test code = 12.1 GM/DL 12.0-15.0 410) HEMATOCRIT (BEAKER) (test code = 36.0 % 36.0-45.0 411) MEAN CORPUSCULAR VOLUME (BEAKER) 99.7 fL 82.0-99.0 H (test code = 753) MEAN CORPUSCULAR HEMOGLOBIN 33.5 pg 27.0-33.0 H (BEAKER) (test code = 751) MEAN CORPUSCULAR HEMOGLOBIN CONC 33.6 GM/DL 32.0-36.0 (BEAKER) (test code = 752) RED CELL DISTRIBUTION WIDTH 11.8 % 10.3-14.2 (BEAKER) (test code = 412) PLATELET COUNT (BEAKER) (test 209 K/CU MM 150-430 code = 756) MEAN PLATELET VOLUME (BEAKER) 8.1 fL 6.5-10.5 (test code = 754) NUCLEATED RED BLOOD CELLS 0 /100 WBC 0-0 (BEAKER) (test code = 413) NEUTROPHILS RELATIVE PERCENT 87 % (BEAKER) (test code = 429) LYMPHOCYTES RELATIVE PERCENT 6 % (BEAKER) (test code = 430) MONOCYTES RELATIVE PERCENT 6 % (BEAKER) (test code = 431) EOSINOPHILS RELATIVE PERCENT 0 % (BEAKER) (test code = 432) BASOPHILS RELATIVE PERCENT 0 % (BEAKER) (test code = 437) NEUTROPHILS ABSOLUTE COUNT 13.10 K/ L 1.80-8.00 H (BEAKER) (test code = 670) LYMPHOCYTES ABSOLUTE COUNT 0.92 K/ L 1.48-4.50 L (BEAKER) (test code = 414) MONOCYTES ABSOLUTE COUNT (BEAKER) 0.95 K/ L 0.00-1.30 (test code = 415) EOSINOPHILS ABSOLUTE COUNT 0.01 K/ L 0.00-0.50 (BEAKER) (test code = 416) BASOPHILS ABSOLUTE COUNT (BEAKER) 0.02 K/ L 0.00-0.20 (test code = 417) 0.00
[2022-06-15] MEDS ORDERED: ONDANSETRON 4 MG/2 ML VIAL ONE (17:52)
[2022-06-15] MEDS ORDERED: NA CHLORIDE 0.9% 1,000 ML ONE ×2 (17:52→19:44)
[2022-06-15 18:26] LABS: Absolute Lymphocytes (CBC) 0.5 K/uL (0.7-4.9); Hematocrit 39.7 % (36.0-45.0); Lymphocytes % 5.8 % (15.3-44.8); MCV 99.1 fL (80-100); MPV 8.1 fL (7.6-11.3)
[2022-06-15] MEDS ORDERED: ACETAMINOPHEN 500 MG TAB ONE (18:36)
[2022-06-15 18:39] LABS: Bilirubin Total 0.3 mg/dL (0.2-1.0); Protein, Total 8.3 g/dL (6.4-8.2)
--- NOTE | 2022-06-15 19:13 | RAD REPORT ---
EXAM DESCRIPTION: Trell Single View06/15/2022 6:56 pm CLINICAL HISTORY: Cough COMPARISON: none FINDINGS: The lungs appear clear of acute infiltrate. The heart is normal size IMPRESSION: No acute abnormalities displayed If patient's symptoms persist PA and lateral chest series would be recommended
[2022-06-15 19:38] LABS: Urine Blood 2+ (Negative); Urine Glucose Negative (Negative); Urine Protein Negative (Negative)
[2022-06-15] MEDS ORDERED: KETOROLAC 30 MG/ML INJ ONE (19:59)
[2022-06-15 20:22] LABS: SARS-COV-2 RT PCR NEGATIVE (NEGATIVE)
[2022-06-15 20:30] LABS: Urine Mucus Slight /HPF (None Seen); Urine RBC 21-50 /HPF (None Seen)
[2022-06-15] MEDS ORDERED: IBUPROFEN 100 MG/5 ML UCUP ONE (20:53)
--- NOTE | 2022-06-15 20:55 | ER ---
Nurse's Notes [facility] Name: Damien Erwin Age: 22 yrs Sex: Female : 2000 Arrival Date: 06/15/2022 Time: 17:06 Bed 4 Private MD: Diagnosis: Influenza due to identified novel influenza A virus with other respiratory manifestations Presentation: 06/15 17:08 Chief complaint: Subjective fever, sore throat, body aches, chills, and headache x 2 hb days. Coronavirus screen: Client presents with at least one sign or symptom that may indicate coronavirus-19. Standard/surgical mask placed on the client. Provider contacted for isolation considerations. Ebola Screen: No symptoms or risks identified at this time. Initial Sepsis Screen: Does the patient meet any 2 criteria? No. Patient's initial sepsis screen is negative. Does the patient have a suspected source of infection? No. Patient's initial sepsis screen is negative. Risk Assessment: Do you want to hurt yourself or someone else? Patient reports no desire to harm self or others. Onset of symptoms was June 15, 2022. 17:08 Method Of Arrival: Ambulatory hb 17:08 Acuity: FILOMENA 3 hb Historical: - Allergies: 17:10 No Known Allergies; hb - PMHx: 17:10 Kidney stones; hb - Immunization history:: Client reports receiving the 2nd dose of the Covid vaccine, Flu vaccine is not up to date. - Social history:: Smoking status: Patient denies any tobacco usage or history of. Patient uses alcohol, only on a social basis. Screenin:20 Abuse screen: Denies threats or abuse. Nutritional screening: No deficits noted. mb9 Tuberculosis screening: No symptoms or risk factors identified. Fall Risk None identified. Assessment: 17:18 General: Appears uncomfortable, Behavior is cooperative, appropriate for age, anxious. mb9 Pain: Complains of pain in entire body hurts Pain currently is 10 out of 10 on a pain scale. Quality of pain is described as aching. Neuro: Saleh Agitation-Sedation Scale (RASS): 0 - Alert and Calm Level of Consciousness is awake, alert, obeys commands, Oriented to person, place, time, situation, Appropriate for age. Cardiovascular: Heart tones S1 S2 present Rhythm is sinus tachycardia. Respiratory: Reports shortness of breath on exertion Airway is patent Respiratory effort is even, unlabored, Respiratory pattern is regular, symmetrical, Breath sounds are clear bilaterally. Respiratory: Reports. GI: Abdomen is round Bowel sounds present X 4 quads. Abd is soft and non tender X 4 quads. Reports nausea. : No signs and/or symptoms were reported regarding the genitourinary system. EENT: Reports. EENT: Throat is reddened. Derm: Skin is intact, Skin is clammy, Skin is flushed, Skin temperature is warm. Musculoskeletal: Range of motion: intact in all extremities. 18:20 Pain:. Neuro: Level of Consciousness is awake, alert, obeys commands. Cardiovascular: mb9 Rhythm is sinus tachycardia. Respiratory: Reports shortness of breath cough that is Airway is patent Respiratory effort is even, unlabored, Respiratory pattern is regular, symmetrical. Derm: Skin is intact, Skin is dry, Skin is flushed, Skin temperature is warm. 19:25 General: Appears comfortable, Behavior is calm, cooperative. Pain: Complains of pain in ha1 head Pain does not radiate. Pain currently is 6 out of 10 on a pain scale. Quality of pain is described as aching, pressure. Neuro: Level of Consciousness is awake, alert, obeys commands, Oriented to person, place, time, situation. Cardiovascular: Denies chest pain, Heart tones S1 S2 present Capillary refill < 3 seconds Patient's skin is warm and dry. Rhythm is sinus tachycardia. Respiratory: Reports cough that is Airway is patent Respiratory effort is even, unlabored, Respiratory pattern is regular, symmetrical, Breath sounds are clear bilaterally. GI: Abdomen is non-distended, obese, Bowel sounds present X 4 quads. Abd is soft and non tender X 4 quads. : No signs and/or symptoms were reported regarding the genitourinary system. Urine is clear. Derm: Skin is pink, warm \T\ dry. Musculoskeletal: Circulation, motion, and sensation intact. Range of motion: intact in all extremities. 20:25 Reassessment: Patient and/or family updated on plan of care and expected duration. Pain ha1 level reassessed. Patient is alert, oriented x 3, equal unlabored respirations, skin warm/dry/pink. Patient states symptoms have improved. Vital Signs: 17:08 BP 154 / 82; Pulse 135; Resp 20; Temp 100.5; Pulse Ox 98% on R/A; Weight 86.18 kg; hb Height 5 ft. 3 in. (160.02 cm); Pain 8/10; 18:20 BP 143 / 78; Pulse 112; Resp 18; Pulse Ox 96% ; mb9 19:00 BP 155 / 71; Pulse 119; Resp 18; Pulse Ox 98% on R/A; mb9 19:25 BP 155 / 71; Pulse 112; Resp 18 S; Temp 99.7; Pulse Ox 96% on R/A; ha1 20:25 BP 119 / 54; Pulse 126; Resp 16 S; Pulse Ox 97% on R/A; ha1 20:54 BP 119 / 55; Pulse 102; Resp 16 S; Pulse Ox 98% on R/A; ha1 17:08 Body Mass Index 33.66 (86.18 kg, 160.02 cm) hb ED Course: 17:06 Patient arrived in ED. rg4 17:09 Chinedu Frazier PA is PHCP. cp 17:09 Ramirez Summers MD is Attending Physician. cp 17:10 Triage completed. hb 17:18 Sarah Blake, RN is Primary Nurse. mb9 17:21 Arm band placed on. mb9 17:21 Patient has correct armband on for positive identification. Placed in gown. Bed in low mb9 position. Call light in reach. Side rails up X 1. Client placed on continuous cardiac and pulse oximetry monitoring. NIBP monitoring applied. tattoo designer on. 17:55 Inserted saline lock: 20 gauge in left antecubital area, using aseptic technique. Blood mb9 collected. 18:17 COVID-19/FLU A+B Sent. mb9 18:17 Strep Sent. mb9 18:17 CBC with Diff Sent. mb9 18:17 CMP Sent. mb9 18:17 Lipase Sent. mb9 18:58 XRAY Chest (1 view) In Process Unspecified. EDMS 19:00 EKG done, by ED staff, reviewed by Chinedu GRAHAM. mb9 19:35 Urine Microscopic Only Sent. tw5 19:47 Leann Mullen MD is Attending Physician. cp 21:17 No provider procedures requiring assistance completed. IV discontinued, intact, ha1 bleeding controlled, No redness/swelling at site. Pressure dressing applied. Administered Medications: 18:00 Drug: NS 0.9% 1000 ml Route: IV; Rate: 1 bolus; Site: left antecubital; mb9 18:18 Drug: Zofran (Ondansetron) 4 mg Route: IVP; Site: left antecubital; mb9 18:37 Drug: Tylenol 1000 mg Route: PO; mb9 19:03 Follow up: Response: No adverse reaction mb9 19:47 Drug: NS 0.9% 1000 ml Route: IV; Rate: 1 bolus; Site: left antecubital; ha1 21:10 Follow up: Response: No adverse reaction; IV Status: Completed infusion; IV Intake: ha1 1000ml 20:02 Drug: Ketorolac 15 mg Route: IVP; Site: left antecubital; ha1 20:30 Follow up: Response: No adverse reaction ha1 20:02 Not Given (Duplicate Order): Ketorolac 15 mg IVP once ha1 21:00 Drug: Tamiflu (oseltamivir) 75 mg Route: PO; ha1 21:19 Follow up: Response: No adverse reaction ha1 Medication: 17:21 VIS not applicable for this client. mb9 Intake: 21:10 IV: 1000ml; Total: 1000ml. ha1 Outcome: 20:54 Discharge ordered by MD. cp 21:17 Discharged to home ambulatory, with family. ha1 21:17 Condition: stable 21:17 Discharge instructions given to patient, family, Instructed on discharge instructions, follow up and referral plans. medication usage, Demonstrated understanding of instructions, follow-up care, medications. 21:18 Patient left the ED. ha1 Signatures: Dispatcher [employer] EDMS Chinedu Frazier PA PA cp Baxter, Heather, RN RN hb Garcia, Rubi rg4 Tiarra Sorto tw5 Adrienne Santos RN RN ha1 Sarah Blake RN RN mb9
--- NOTE | 2022-06-15 20:55 | EDPHYS ---
Physician Documentation [facility] Name: Damien Erwin Age: 22 yrs Sex: Female : 2000 Arrival Date: 06/15/2022 Time: 17:06 Bed 4 Private MD: ED Physician Leann Mullen HPI: 06/15 17:40 This 22 yrs old Female presents to ER via Ambulatory with complaints of Fever, cp Chills, Body Aches. 17:40 The patient reports fever, with an emergency department temperature of 100.5 degrees cp Fahrenheit. 17:40 Onset: The symptoms/episode began/occurred 2 day(s) ago. cp 17:40 Associated signs and symptoms: Pertinent positives: abdominal pain, cough, decreased cp appetite, headache, back pain, Pertinent negatives: altered mental status, diarrhea. Severity of symptoms: in the emergency department the symptoms are unchanged despite home interventions. Historical: - Allergies: 17:10 No Known Allergies; hb - PMHx: 17:10 Kidney stones; hb - Immunization history:: Client reports receiving the 2nd dose of the Covid vaccine, Flu vaccine is not up to date. - Social history:: Smoking status: Patient denies any tobacco usage or history of. Patient uses alcohol, only on a social basis. ROS: 17:45 Constitutional: Positive for body aches, chills, fever, Negative for poor PO intake. cp 17:45 Eyes: Negative for injury, pain, redness, and discharge. cp 17:45 ENT: Positive for sore throat, Negative for drainage from ear(s), ear pain, difficulty swallowing, difficulty handling secretions. 17:45 Neck: Negative for stiffness. 17:45 Respiratory: Positive for cough, "sounds productive", Negative for shortness of breath, wheezing. 17:45 Abdomen/GI: Positive for nausea, Negative for vomiting, diarrhea, constipation, anorexia. 17:45 Back: Positive for pain at rest, pain with movement. 17:45 Neuro: Positive for headache, Negative for altered mental status, dizziness, weakness. 17:45 All other systems are negative. Exam: 17:50 Constitutional: The patient appears in no acute distress, alert, awake, non-toxic, well cp developed, well nourished, uncomfortable. 17:50 Head/Face: Normocephalic, atraumatic. cp 17:50 Eyes: Periorbital structures: appear normal, Conjunctiva: normal, no exudate, no injection, Sclera: no appreciated abnormality, Lids and lashes: appear normal, bilaterally. 17:50 ENT: External ear(s): are unremarkable, Ear canal(s): are normal, clear, TM's: bulging, is not appreciated, bilaterally, dullness, bilaterally, erythema, is not appreciated, bilaterally, Nose: is normal, Mouth: Lips: moist, Oral mucosa: moist, Posterior pharynx: Airway: no evidence of obstruction, patent, Tonsils: with erythema, no enlargement, no ulcerations, swelling, is not appreciated, erythema, that is mild, exudate, is not appreciated. 17:50 Neck: ROM/movement: is normal, is supple, without pain, no range of motions limitations, no meningismus, Lymph nodes: no appreciated lymphadenopathy. 17:50 Chest/axilla: Inspection: normal. 17:50 Cardiovascular: Rate: tachycardic, Rhythm: regular. 17:50 Respiratory: the patient does not display signs of respiratory distress, Respirations: normal, no use of accessory muscles, no retractions, labored breathing, is not present, Breath sounds: bronchial sounds, that are mild, are heard diffusely, decreased breath sounds, are not appreciated, stridor, is not appreciated, + upper airway congestion. wheezing: is not appreciated. 17:50 Abdomen/GI: Inspection: abdomen appears normal, Palpation: abdomen is soft and non-tender, in all quadrants. 17:50 Back: CVA tenderness, is absent. 17:50 Neuro: Orientation: to person, place \\T\\ time. Mentation: is normal, Motor: moves all fours, strength is normal, Sensation: is normal. 19:02 ECG was reviewed by the Attending Physician. cp Vital Signs: 17:08 BP 154 / 82; Pulse 135; Resp 20; Temp 100.5; Pulse Ox 98% on R/A; Weight 86.18 kg; hb Height 5 ft. 3 in. (160.02 cm); Pain 8/10; 18:20 BP 143 / 78; Pulse 112; Resp 18; Pulse Ox 96% ; mb9 19:00 BP 155 / 71; Pulse 119; Resp 18; Pulse Ox 98% on R/A; mb9 19:25 BP 155 / 71; Pulse 112; Resp 18 S; Temp 99.7; Pulse Ox 96% on R/A; ha1 20:25 BP 119 / 54; Pulse 126; Resp 16 S; Pulse Ox 97% on R/A; ha1 20:54 BP 119 / 55; Pulse 102; Resp 16 S; Pulse Ox 98% on R/A; ha1 17:08 Body Mass Index 33.66 (86.18 kg, 160.02 cm) hb MDM: 17:10 Patient medically screened. cp 18:00 Differential diagnosis: viral Infection, bacterial infection, bronchitis, pneumonia cp UTI, meningitis, sepsis, influenza, COVID-19. 20:53 Data reviewed: vital signs, nurses notes, lab test result(s), EKG, radiologic studies. cp 20:53 Test interpretation: by ED physician or midlevel provider: ECG, plain radiologic cp studies. Counseling: I had a detailed discussion with the patient and/or guardian regarding: the historical points, exam findings, and any diagnostic results supporting the discharge/admit diagnosis, lab results, radiology results, to return to the emergency department if symptoms worsen or persist or if there are any questions or concerns that arise at home. Response to treatment: the patient's symptoms have markedly improved after treatment, VSS. Labs, EKG and radiology studies reviewed. Patient reports symptoms improved with IV fluids and meds. Patient appears non-toxic and no signs of respiratory distress. Chest xray negative for pneumonia, influenza test positive for A. Will discharge to home for continued monitoring. 06/15 17:35 Order name: CBC with Diff; Complete Time: 18:40 06/15 18:40 Interpretation: Normal except: DENNIS% 80.5; LYM% 5.8; MN% 12.7; LYMA 0.5. 06/15 17:35 Order name: CMP; Complete Time: 18:40 06/15 18:41 Interpretation: TP 8.3; GLOB 4.3; A/G 0.9. 06/15 17:35 Order name: Lipase; Complete Time: 18:40 06/15 18:41 Interpretation: LIP 51; Reviewed. 06/15 17:35 Order name: Urine Microscopic Only; Complete Time: 20:51 06/15 20:51 Interpretation: Normal except: URBC 21-50; BYST Trace. cp 06/15 17:35 Order name: Strep; Complete Time: 19:34 06/15 19:34 Interpretation: Reviewed. 06/15 17:35 Order name: COVID-19/FLU A+B; Complete Time: 20:51 06/15 20:52 Interpretation: INFLUENZA A POSITIVE; Reviewed. 06/15 18:33 Order name: XRAY Chest (1 view); Complete Time: 19:34 06/15 19:34 Interpretation: Report review. 06/15 18:59 Order name: Throat Culture; Complete Time: 19:34 EDPR 06/15 19:01 Order name: Throat Culture EDPR 06/15 19:39 Order name: Urine Dipstick-Ancillary; Complete Time: 19:46 EDPR 06/15 19:46 Interpretation: Normal except: UKET Trace; UBLD 2+. 06/15 19:56 Order name: Urine --Ancillary (enter results); Complete Time: 20:20 06/15 20:20 Interpretation: Reviewed. 06/15 17:35 Order name: IV Saline Lock; Complete Time: 18:17 06/15 17:35 Order name: Labs collected and sent; Complete Time: 18:17 06/15 17:35 Order name: Urine Dipstick-Ancillary (obtain specimen); Complete Time: 19:35 06/15 17:35 Order name: Urine Test (obtain specimen); Complete Time: 19:35 06/15 18:40 Order name: EKG; Complete Time: 18:40 06/15 18:40 Order name: EKG - Nurse/Tech; Complete Time: 19:00 cp EC:02 Rate is 115 beats/min. Rhythm is regular. MN interval is normal. QRS interval is cp normal. QT interval is normal. T waves are Inverted in lead aVR. Interpreted by me. Reviewed by me. Administered Medications: 18:00 Drug: NS 0.9% 1000 ml Route: IV; Rate: 1 bolus; Site: left antecubital; mb9 18:18 Drug: Zofran (Ondansetron) 4 mg Route: IVP; Site: left antecubital; mb9 18:37 Drug: Tylenol 1000 mg Route: PO; mb9 19:03 Follow up: Response: No adverse reaction mb9 19:47 Drug: NS 0.9% 1000 ml Route: IV; Rate: 1 bolus; Site: left antecubital; ha1 21:10 Follow up: Response: No adverse reaction; IV Status: Completed infusion; IV Intake: ha1 1000ml 20:02 Drug: Ketorolac 15 mg Route: IVP; Site: left antecubital; ha1 20:30 Follow up: Response: No adverse reaction ha1 20:02 Not Given (Duplicate Order): Ketorolac 15 mg IVP once ha1 21:00 Drug: Tamiflu (oseltamivir) 75 mg Route: PO; ha1 21:19 Follow up: Response: No adverse reaction ha1 Disposition: 06/16 00:32 STAFF ATTESTATION STATEMENT: I was immediately available onsite in the emergency sd2 department for consultation in the care of this patient. I did not see or examine this patient. Leann Mullen MD. Disposition Summary: 06/15/22 20:54 Discharge Ordered Location: Home cp Problem: new cp Symptoms: have improved cp Condition: Stable cp Diagnosis - Influenza due to identified novel influenza A virus with other respiratory cp manifestations Followup: cp - With: Private Physician - When: 2 - 3 days - Reason: Worsening of condition Discharge Instructions: - Discharge Summary Sheet cp - Influenza, Adult cp Forms: - Medication Reconciliation Form cp - Thank You Letter cp - Antibiotic Education cp - Prescription Opioid Use cp Prescriptions: - Bromfed DM 2-30-10 mg/5 mL Oral syrup - take 10 milliliter by ORAL route every 6 hours; 180 milliliter; Refills: 0, cp Product Selection Permitted - Ibuprofen 800 mg Oral Tablet - take 1 tablet by ORAL route every 8 hours As needed take with food; 30 tablet; cp Refills: 0, Product Selection Permitted - Tamiflu 75 mg Oral Capsule - take 1 capsule by ORAL route every 12 hours for 5 days; 10 capsule; Refills: 0, cp Product Selection Permitted Signatures: Dispatcher [employer] EDChinedu Walker PA PA cp Judy Thomas RN RN hb Dunlop, Stephanie, MD MD sd2 Adrienne Santos RN RN ha1 Hayden, Sarah Horne RN RN mb9 Corrections: (The following items were deleted from the chart) 06/15 20:52 20:52 Reviewed. cp cp
[2022-06-15] MEDS ORDERED: OSELTAMIVIR 75 MG CAP ONE (20:58)
[2022-06-15 21:26] VITALS: TEMP 99.7
[2022-06-15 21:29] VITALS: BP 119/55; O2SAT 98
--- NOTE | 2022-06-17 15:33 | EKG ---
Test Date: 2022-06-15 Test Time: 18:57:15 Health Insurance Specialist: MB MEASUREMENT RESULTS: Intervals: Rate: 115 PA: 140 QRSD: 76 QT: 302 QTc: 417 [place]: P: 61 PA: 140 QRS: 90 T: 48 INTERPRETIVE STATEMENTS: Sinus tachycardia Rightward axis Borderline ECG No previous ECG available for comparison Electronically Signed On 06-17-22 15:29:54 QUANTITATIVE STRATEGY ANALYST by Ronaldo Norton
== END 2022-06-15 21:18 | disposition home or self-care (01) ==
LOC: ER 17:01
DX: J10.1 Influenza due to other identified influenza virus with other respiratory manifestations (principal); Z20.822 Contact with and (suspected) exposure to COVID-19; Z87.442 Personal history of urinary calculi
CPT/HCPCS: 96361; 93005; 87070; 85025; 36415; 81025; 87081; 83690; 80053; 0240U; 71045; 96375; 96374; 99284; J7030 ×2; J2405; 81003; 81015